=== PATIENT | female | born 1945 | race Caucasian/White ===

== ENCOUNTER 2017-10-29 06:20 | Inpatient (IN) | payer MEDICARE ==
[2017-10-29] VITALS (12 sets, daily range): BP systolic 114–166; BP diastolic 54–100; PULSE 80–125; RESP 17–20; TEMP 98.5–102.8; O2SAT 94–99
[~2017-10-29] VITALS: Ht 157.5 cm; Wt 78.6 kg
[2017-10-29] MEDS ORDERED: ASPI-516 CHEW (06:33)
[2017-10-29] MEDS ORDERED: METO1TAB9 PO (06:33)
[2017-10-29] MEDS ORDERED: ATOR40TA16 PO (06:33)
[2017-10-29] MEDS ORDERED: METF1000 PO (06:33)
[2017-10-29] MEDS ORDERED: SODIUM CHLOR 0.9% 1000 ML INJ 1,000 ML IV ONE (07:26)
[2017-10-29] MEDS ORDERED: cefTRIAXone INJ 1,000 MG in SODIUM CHLORIDE 0.9% INJ 100 ML IV ONE (07:30)
[2017-10-29] MEDS ORDERED: ACETAMINOPHEN 325 MG TAB PO ONE (07:30)
[2017-10-29 07:50] LABS: AUTOMATED NEUTROPHIL # 18.2 TH/MM3 (1.8-7.7); BASOPHIL # 0.1 TH/MM3 (0-0.2); BASOPHIL % 0.3 % (0.0-2.0); EOSINOPHIL % 0.2 % (0.0-4.0); HEMATOCRIT 35.9 % (35.0-46.0); HEMOGLOBIN 11.7 GM/DL (11.6-15.3); LYMPHOCYTE # 0.8 TH/MM3 (1.0-4.8); MEAN CELL VOLUME 80.5 FL (80.0-100.0); MEAN CORPUSCULAR HEMOGLOBIN 26.3 PG (27.0-34.0); MEAN CORPUSCULAR HGB CONC 32.7 % (32.0-36.0); MEAN PLATELET VOLUME 8.3 FL (7.0-11.0); MONO % 3.2 % (0.0-8.0); MONOCYTE # 0.6 TH/MM3 (0-0.9); NEUT % 92.3 % (16.0-70.0); PLATELET COUNT 269 TH/MM3 (150-450); RED BLOOD COUNT 4.46 MIL/MM3 (4.00-5.30); RED CELL DISTRIBUTION WIDTH 14.1 % (11.6-17.2); WHITE BLOOD COUNT 19.7 TH/MM3 (4.0-11.0)
--- NOTE | 2017-10-29 07:59 | RADRPT ---
EXAM DATE/TIME: 10/29/2017 07:44 [facility] COMPARISON: No previous studies available for comparison. INDICATIONS : Weakness, fall. RADIATION DOSE: 59.44 CTDIvol (mGy) MEDICAL HISTORY : Hypertension. Hypercholesterolemia. Diabetes. SURGICAL HISTORY : Hysterectomy. ENCOUNTER: Initial ACUITY: 1 day PAIN SCALE: 3/10 LOCATION: Left frontal TECHNIQUE: Multiple contiguous axial images were obtained of the head. Using automated exposure control and adj ustment of the mA and/or kV according to patient size, radiation dose was kept as low as reasonably a chievable to obtain optimal diagnostic quality images. DICOM format image data is available electro nically for review and comparison. FINDINGS: CEREBRUM: The ventricles are normal for age. No evidence of midline shift, mass lesion, hemorrhage or acute in farction. No extra-axial fluid collections are seen. POSTERIOR FOSSA: The cerebellum and brainstem are intact. The 4th ventricle is midline. The cerebellopontine angle i s unremarkable. EXTRACRANIAL: The visualized portion of the orbits is intact. Subgaleal hematoma along the left frontal region as w ell as preseptal orbital soft tissue swelling on the left. SKULL: The calvaria is intact. No evidence of skull fracture. CONCLUSION: No acute intracranial abnormality. Subgaleal hematoma along the left frontal region a s well as preseptal orbital soft tissue swelling on the left. Jamel Leonard MD on October 29, 2017 at 7:55 Board Certified Radiologist. This report was verified electronically.
[2017-10-29] MEDS: SODIUM CHLOR 0.9% 1000 ML INJ 800 ML IV ONE ×2 (08:01→11:05)
[2017-10-29 08:13] LABS: ALBUMIN 2.9 GM/DL (3.4-5.0); ALKALINE PHOSPHATASE 97 U/L (45-117); ALT (GPT) 39 U/L (10-53); AST (GOT) 33 U/L (15-37); BICARBONATE 19.7 MEQ/L (21.0-32.0); BLOOD UREA NITROGEN 13 MG/DL (7-18); CALCIUM 8.4 MG/DL (8.5-10.1); CHLORIDE 88 MEQ/L (98-107); CREATININE 0.95 MG/DL (0.50-1.00); GLOMERULAR FILTRATION RATE 58 ML/MIN (>89); GLUCOSE,RANDOM 347 MG/DL (74-106); TOTAL BILIRUBIN ADULT 0.7 MG/DL (0.2-1.0); TOTAL PROTEIN 7.6 GM/DL (6.4-8.2)
[2017-10-29 08:19] LABS: SODIUM (NA) 120 MEQ/L (136-145)
--- NOTE | 2017-10-29 08:43 | PD ---
HPI Chief Complaint: Fever Time Seen by Provider: 07:15 Travel History International Travel<30 days: No Contact w/Intl Traveler<30days: No Traveled to known affect area: No History of Present Illness HPI 72-year-old female arrives with fall and left forehead pain. Patient woke up to urinate approximately 5 in the morning and subsequently fell striking the left forehead about the bathroom. Profuse bleeding was observed. The patient reports taking Bactrim now for about 10 days for urinary tract infection. In the ER she denies fever although a fever of 101.9 was observed upon arrival. She denies chest pain shortness of breath and cough. She denies nausea vomiting dizziness. Moderate cephalgia is reported without visual change numbness tingling or weakness. PFSH Past Medical History High Cholesterol: Yes Diabetes: Yes Patient Takes Glucophage: Yes Diminished Hearing: No Hypertension: Yes Tetanus Vaccination: Unknown Influenza Vaccination: No ?: Not Menopausal: Yes Past Surgical History Hysterectomy: Yes Social History Alcohol Use: No Tobacco Use: No Substance Use: No Allergies-Medications (Allergen,Severity, Reaction): Coded Allergies: No Known Allergies (Unverified , 10/29/17) Reported Meds & Prescriptions Reported Meds & Active Scripts Active Reported Aspirin 81 Mg Chew 81 Mg CHEW DAILY Metoprolol Succinate ER 24 HR (Metoprolol Succinate) 50 Mg Tab 50 Mg PO DAILY Atorvastatin (Atorvastatin Calcium) 40 Mg Tab 40 Mg PO HS Metformin (Metformin HCl) 1,000 Mg Tab 1,000 Mg PO BIDPC Review of Systems Except as stated in HPI: all other systems reviewed are Neg General / Constitutional: No: Fever Genitourinary: Positive: Urgency, Frequency, Dysuria Physical Exam Narrative GENERAL: 72-year-old female pleasant well-nourished and developed Vital Signs Date Time Temp Pulse Resp B/P (MAP) Pulse Ox O2 Delivery O2 Flow Rate FiO2 10/29/17 06:37 101.9 108 17 123/60 (81) 95 Room Air 10/29/17 06:33 Room Air 10/29/17 06:29 101.9 108 17 123/60 (81) 95 SKIN: Warm and dry. HEAD: Atraumatic. Normocephalic. There is a cephalohematoma overlying the left eye. EYES: Pupils equal and round. No scleral icterus. No injection or drainage. There is no traumatic hyphema. Range of motion of the eyes is normal. ENT: No nasal bleeding or discharge. Mucous membranes pink and moist. NECK: Trachea midline. No JVD. CARDIOVASCULAR: Tachycardia regular without murmur. RESPIRATORY: No accessory muscle use. Clear to auscultation. Breath sounds equal bilaterally. GASTROINTESTINAL: Abdomen soft, non-tender, nondistended. Hepatic and splenic margins not palpable. MUSCULOSKELETAL: Extremities without clubbing, cyanosis, or edema. No obvious deformities. NEUROLOGICAL: Awake and alert. No obvious cranial nerve deficits. Motor grossly within normal limits. Five out of 5 muscle strength in the arms and legs. Normal speech. PSYCHIATRIC: Appropriate mood and affect; insight and judgment normal. Data Data Last Documented VS Vital Signs Date Time Temp Pulse Resp B/P (MAP) Pulse Ox O2 Delivery O2 Flow Rate FiO2 10/29/17 08:50 99.2 95 18 114/54 (74) 95 Room Air Orders Orders Sepsis Workup Initiated (10/29/17 ) Complete Blood Count With Diff (10/29/17 07:26) Comprehensive Metabolic Panel (10/29/17 07:26) Lactic Acid Sepsis Protocol (10/29/17 07:26) Urinalysis - C+S If Indicated (10/29/17 07:26) Blood Culture (10/29/17 07:26) Ecg Monitoring (10/29/17 07:26) Iv Access Insert/Monitor (10/29/17 07:26) Cath For Specimen (10/29/17 07:26) Oximetry (10/29/17 07:26) Oxygen Administration (10/29/17 07:26) Acetaminophen (Tylenol) (10/29/17 07:30) Sodium Chlor 0.9% 1000 Ml Inj (Ns 1000 M (10/29/17 07:26) Sodium Chlor 0.9% 1000 Ml Inj (Ns 1000 M (10/29/17 07:26) Ceftriaxone Inj (Rocephin Inj) (10/29/17 07:30) Ct Brain W/O Iv Contrast(Rout) (10/29/17 07:28) Chest, Pa & Lat (10/29/17 ) Admit Order (Ed Use Only) (10/29/17 ) Wood Chopper / Telemetry RANDALL.Q8H (10/29/17 08:50) Vital Signs (Adult) Q4H (10/29/17 08:50) Diet Heart Healthy (10/29/17 Breakfast) Activity Bed Rest (10/29/17 08:50) Labs Laboratory Tests Test 10/29/17 07:00 10/29/17 08:50 White Blood Count 19.7 TH/MM3 Red Blood Count 4.46 MIL/MM3 Hemoglobin 11.7 GM/DL Hematocrit 35.9 % Mean Corpuscular Volume 80.5 FL Mean Corpuscular Hemoglobin 26.3 PG Mean Corpuscular Hemoglobin Concent 32.7 % Red Cell Distribution Width 14.1 % Platelet Count 269 TH/MM3 Mean Platelet Volume 8.3 FL Neutrophils (%) (Auto) 92.3 % Lymphocytes (%) (Auto) 4.0 % Monocytes (%) (Auto) 3.2 % Eosinophils (%) (Auto) 0.2 % Basophils (%) (Auto) 0.3 % Neutrophils # (Auto) 18.2 TH/MM3 Lymphocytes # (Auto) 0.8 TH/MM3 Monocytes # (Auto) 0.6 TH/MM3 Eosinophils # (Auto) 0.0 TH/MM3 Basophils # (Auto) 0.1 TH/MM3 CBC Comment DIFF FINAL Differential Comment Blood Urea Nitrogen 13 MG/DL Creatinine 0.95 MG/DL Random Glucose 347 MG/DL Total Protein 7.6 GM/DL Albumin 2.9 GM/DL Calcium Level 8.4 MG/DL Alkaline Phosphatase 97 U/L Aspartate Amino Transf (AST/SGOT) 33 U/L Alanine Aminotransferase (ALT/SGPT) 39 U/L Total Bilirubin 0.7 MG/DL Sodium Level 120 MEQ/L Potassium Level 4.5 MEQ/L Chloride Level 88 MEQ/L Carbon Dioxide Level 19.7 MEQ/L Anion Gap 12 MEQ/L Estimat Glomerular Filtration Rate 58 ML/MIN Lactic Acid Level 1.4 mmol/L [facility] Medical Decision Making Medical Screen Exam Complete: Yes Emergency Medical Condition: Yes Medical Record Reviewed: Yes Differential Diagnosis Metabolic disarray, anemia, intracranial hemorrhage, cephalhematoma, skull fracture, UTI, sepsis Narrative Course CBC & BMP Diagram 10/29/17 07:00 Total Protein 7.6, Albumin 2.9 L, Calcium Level 8.4 L, Alkaline Phosphatase 97, Aspartate Amino Transf (AST/SGOT) 33, Alanine Aminotransferase (ALT/SGPT) 39, Total Bilirubin 0.7 Lactic acid 1.0 LFTs are normal Head CT shows no acute intracranial disease or injury Patient has hyponatremia at 120 associated with fall as well as a fever and tachycardia. IV fluids started, 2 L normal saline, and Rocephin started. Patient will be admitted for electrolyte correction as well as IV antibiotics. d /w Dr Oconnor for [facility]. Diagnosis Primary Impression: Fall Qualified Codes: W19.XXXA - Unspecified fall, initial encounter Additional Impressions: Hyponatremia SIRS (systemic inflammatory response syndrome) Contusion Qualified Codes: S00.03XA - Contusion of scalp, initial encounter Admitting Information Admitting Physician Requests: Admit Maciej Ruiz MD Oct 29, 2017 08:43
[2017-10-29 09:01] LABS: BLOOD, URINE MOD (NEG); GLUCOSE,URINE 1000 OR GREATER mg/dL (NEG); KETONE, URINE 80 OR GREATER mg/dL (NEG); NITRITE,URINE NEG (NEG); URINE COLOR YELLOW (YELLW/STRAW); URINE LEUKOCYTE ESTERASE NEG (NEG)
[2017-10-29 09:05] LABS: BILIRUBIN, URINE NEG (NEG)
[2017-10-29 09:08] LABS: AMORPHOUS SEDIMENT, URINE FEW; RBC, URINE 0-3 /hpf (0-3); SQUAMOUS EPITHELIAL CELL URINE 0-5 /hpf (0-5)
--- NOTE | 2017-10-29 09:32 | RADRPT ---
EXAM DATE/TIME: 10/29/2017 09:07 [facility] COMPARISON: No previous studies available for comparison. INDICATIONS : Fever, fall, weak MEDICAL HISTORY : None. SURGICAL HISTORY : None. ENCOUNTER: Initial ACUITY: 1 day PAIN SCORE: 0/10 LOCATION: Bilateral chest FINDINGS: Right basilar atelectasis is noted. The heart is mildly prominent. There is a poor inspiratory result . CONCLUSION: Right basilar atelectasis. Mild cardiomegaly. Poor inspiratory result. Jamel Leonard MD on October 29, 2017 at 9:28 Board Certified Radiologist. This report was verified electronically.
[2017-10-29] MEDS ORDERED: SODIUM CHLORIDE 0.9% FLUSH 10 ML FLUSH IV FLUSH PRN (10:00)
[2017-10-29] MEDS ORDERED: NALOXONE HCL 0.4 MG/ML AMP IV PUSH PRN (10:00)
[2017-10-29] MEDS ORDERED: DEXTROSE 50% IN WATER 50 ML VIAL(D50) IV PUSH PRN (10:00)
[2017-10-29] MEDS ORDERED: GLUCAGON 1 MG/ML VIAL OTHER PRN (10:00)
[2017-10-29] MEDS ORDERED: ONDANSETRON HCL 4 MG/2 ML VIAL IVP PRN (10:00)
--- NOTE | 2017-10-29 10:04 | HHI.HP ---
HPI Service [facility] Primary Care Physician Carissa Hinson MD Admission Diagnosis HypoNa; SIRS; Fall; Syncope; Forehead Contusion w Abrasion Diagnoses: Chief Complaint: Status post fall at home Travel History International Travel<30 Days: No Contact w/Intl Traveler <30 Da: No Traveled to Known Affected Are: No History of Present Illness This patient is a 9-year-old female with a history of hypertension and recent urinary tract infection. She was recently given Bactrim for "10 days ". She started having lightheadedness and dizziness and fell at home. She struck the left side of her head and had a laceration with quite a bit of blood. She has since been clean and evaluated and no small laceration of stitches however the patient is also found to have hyponatremia. Her sodium was 120. Patient is febrile and tachycardia and has evidence of urinary tract infection. Patient admits to dysuria and urinary frequency. She has been admitted to the hospital for hyponatremia. Review of Systems Constitutional: COMPLAINS OF: Dizziness, DENIES: Diaphoretic episodes, Fatigue , Fever, Weight gain, Weight loss, Chills, Change in appetite, Night Sweats Endocrine: DENIES: Abnorml menstrual pattern, Heat/cold intolerance, Polydipsia , Polyuria, Polyphagia Eyes: DENIES: Blurred vision, Diplopia, Eye inflammation, Eye pain, Vision loss , Photosensitivity, Double Vision Ears, nose, mouth, throat: DENIES: Tinnitus, Hearing loss, Vertigo, Nasal discharge, Oral lesions, Throat pain, Hoarseness, Ear Pain, Running Nose, Epistaxis, Sinus Pain, Toothache, Odynophagia Respiratory: DENIES: Apneas, Cough, Snoring, Wheezing, Hemoptysis, Sputum production, Shortness of breath Cardiovascular: DENIES: Chest pain, Palpitations, Syncope, Dyspnea on Exertion , PND, Lower Extremity Edema, Orthopnea, Claudication Gastrointestinal: DENIES: Abdominal pain, Black stools, Bloody stools, Constipation, Diarrhea, Nausea, Vomiting, Difficulty Swallowing, Anorexia Genitourinary: COMPLAINS OF: Urinary incontinence, Urgency, DENIES: Abnormal vaginal bleeding, Dysmenorrhea, Dyspareunia, Sexual dysfunction, Urinary frequency, Hematuria, Dysuria, Nocturia, Vaginal discharge Musculoskeletal: DENIES: Joint pain, Muscle aches, Stiffness, Joint Swelling, Back pain, Neck pain Integumentary: DENIES: Abnormal pigmentation, Pruritus, Rash, Nail changes, Breast masses, Breast skin changes, Nipple discharge Hematologic/lymphatic: DENIES: Bruising, Lymphadenopathy Immunologic/allergic: DENIES: Eczema, Urticaria Neurologic: COMPLAINS OF: Poor Balance Psychiatric: DENIES: Anxiety, Confusion, Mood changes, Depression, Hallucinations, Agitation, Suicidal Ideation, Homicidal Ideation, Delusions Except as stated in HPI: all other systems reviewed are Neg Past Family Social History Past Medical History Hypertension Hyperlipidemia Diabetes mellitus type 2 Past Surgical History Hysterectomy Reported Medications Reviewed in the EMR, recent Bactrim Allergies: Coded Allergies: No Known Allergies (Unverified , 10/29/17) Active Ordered Medications Reviewed in the EMR Family History Father from a cardiac attack Mother from a heart attack and had diabetes mellitus type 2 Social History No tobacco or alcohol dependency issues Physical Exam Vital Signs Vital Signs Date Time Temp Pulse Resp B/P (MAP) Pulse Ox O2 Delivery O2 Flow Rate FiO2 10/29/17 08:50 99.2 95 18 114/54 (74) 95 Room Air 10/29/17 06:37 101.9 108 17 123/60 (81) 95 Room Air 10/29/17 06:33 Room Air 10/29/17 06:29 101.9 108 17 123/60 (81) 95 Physical Exam GENERAL: This is a well-nourished, well-developed patient, ill-appearing left SKIN: No rashes, ecchymoses or lesions. Cool and dry. HEAD: Eyebrows edema and small laceration with ecchymosis, otherwise normocephalic. No temporal or scalp tenderness. EYES: Pupils equal round and reactive. Extraocular motions intact. No scleral icterus. No injection or drainage. ENT: Nose without bleeding, purulent drainage or septal hematoma. Throat without erythema, tonsillar hypertrophy or exudate. Uvula midline. Airway patent. NECK: Trachea midline. No JVD or lymphadenopathy. Supple, nontender, no meningeal signs. CARDIOVASCULAR: Regular rate and rhythm without murmurs, gallops, or rubs. RESPIRATORY: Clear to auscultation. Breath sounds equal bilaterally. No wheezes , rales, or rhonchi. GASTROINTESTINAL: Abdomen soft, non-tender, nondistended. No hepato-splenomegaly , or palpable masses. No guarding. MUSCULOSKELETAL: Extremities without clubbing, cyanosis, or edema. No joint tenderness, effusion, or edema noted. No calf tenderness. Negative Homans sign bilaterally. NEUROLOGICAL: Awake and alert. Cranial nerves II through XII intact. Motor and sensory grossly within normal limits. Five out of 5 muscle strength in all muscle groups. Normal speech. Laboratory Laboratory Tests Test 10/29/17 07:00 10/29/17 08:50 White Blood Count 19.7 Red Blood Count 4.46 Hemoglobin 11.7 Hematocrit 35.9 Mean Corpuscular Volume 80.5 Mean Corpuscular Hemoglobin 26.3 Mean Corpuscular Hemoglobin Concent 32.7 Red Cell Distribution Width 14.1 Platelet Count 269 Mean Platelet Volume 8.3 Neutrophils (%) (Auto) 92.3 Lymphocytes (%) (Auto) 4.0 Monocytes (%) (Auto) 3.2 Eosinophils (%) (Auto) 0.2 Basophils (%) (Auto) 0.3 Neutrophils # (Auto) 18.2 Lymphocytes # (Auto) 0.8 Monocytes # (Auto) 0.6 Eosinophils # (Auto) 0.0 Basophils # (Auto) 0.1 CBC Comment DIFF FINAL Differential Comment Blood Urea Nitrogen 13 Creatinine 0.95 Random Glucose 347 Total Protein 7.6 Albumin 2.9 Calcium Level 8.4 Alkaline Phosphatase 97 Aspartate Amino Transf (AST/SGOT) 33 Alanine Aminotransferase (ALT/SGPT) 39 Total Bilirubin 0.7 Sodium Level 120 Potassium Level 4.5 Chloride Level 88 Carbon Dioxide Level 19.7 Anion Gap 12 Estimat Glomerular Filtration Rate 58 Lactic Acid Level 1.4 Urine Collection Type CATH Urine Color YELLOW Urine Turbidity CLEAR Urine pH 6.0 Urine Specific Springer GREATER/EQUAL 1.030 Urine Protein 100 Urine Glucose (UA) 1000 OR GREATER Urine Ketones 80 OR GREATER Urine Occult Blood MOD Urine Nitrite NEG Urine Bilirubin NEG Urine Urobilinogen 0.2 Urine Leukocyte Esterase NEG Urine RBC 0-3 Urine WBC 6-8 Urine Squamous Epithelial Cells 0-5 Urine Amorphous Sediment FEW Urine Fine Granular Casts 0-2 Microscopic Urinalysis Comment CULTURE INDICATED Date/Time Source Procedure Growth Status 10/29/17 07:05 Blood Peripheral Aerobic Blood Culture Pending Received 3/25/18 07:05 Blood Peripheral Anaerobic Blood Culture Pending Received 10/29/17 08:50 Urine Catheterized Urine Urine Culture Pending Received Result Diagram: 10/29/17 0700 10/29/[address] of the head no intracranial pathology acutely, cutaneous edema consistent with trauma visualized on clinical exam Chest x-ray on my review shows no acute cardiopulmonary disease Septic Shock Reassessment Septic shock perfusion: reassessment completed Caprini VTE Risk Assessment Caprini VTE Risk Assessment: Mod/High Risk (score >= 2) Caprini Risk Assessment Model Point Value = 1 Point Value = 2 Point Value = 3 Point Value = 5 Age 41-60 Minor surgery BMI > 25 kg/m2 Swollen legs Varicose veins or History of unexplained or recurrent spontaneous Oral contraceptives or hormone replacement Sepsis (< 1 month) Serious lung disease, including pneumonia (< 1 month) Abnormal pulmonary function Acute myocardial infarction Congestive heart failure (< 1 month) History of inflammatory bowel disease Medical patient at bed rest Age 61-74 Arthroscopic surgery Major open surgery (> 45 min) Laparoscopic surgery (> 45 min) Malignancy Confined to bed (> 72 hours) Immobilizing plaster cast Central venous access Age >= 75 History of VTE Family history of VTE Factor V Leiden Prothrombin [id number] Lupus anticoagulant Anticardiolipin antibodies Elevated serum homocysteine Heparin-induced thrombocytopenia Other congenital or acquired thrombophilia Stroke (< 1 month) Elective arthroplasty Hip, pelvis, or leg fracture Acute spinal cord injury (< 1 month) Prophylaxis Regimen Total Risk Factor Score Risk Level Prophylaxis Regimen 0-1 Low Early ambulation 2 Moderate Order ONE of the following: *Sequential Compression Device (SCD) *Heparin 5000 units SQ BID 3-4 Higher Order ONE of the following medications: *Heparin 5000 units SQ TID *Enoxaparin/Lovenox 40 mg SQ daily (WT < 150 kg, CrCl > 30 mL/min) *Enoxaparin/Lovenox 30 mg SQ daily (WT < 150 kg, CrCl > 10-29 mL/min) *Enoxaparin/Lovenox 30 mg SQ BID (WT < 150 kg, CrCl > 30 mL/min) AND/OR *Sequential Compression Device (SCD) 5 or more Highest Order ONE of the following medications: *Heparin 5000 units SQ TID (Preferred with Epidurals) *Enoxaparin/Lovenox 40 mg SQ daily (WT < 150 kg, CrCl > 30 mL/min) *Enoxaparin/Lovenox 30 mg SQ daily (WT < 150 kg, CrCl > 10-29 mL/min) *Enoxaparin/Lovenox 30 mg SQ BID (WT < 150 kg, CrCl > 30 mL/min) AND *Sequential Compression Device (SCD) Assessment and Plan Problem List: (1) Hyponatremia ICD Code: E87.1 - Hypo-osmolality and hyponatremia Status: Acute Plan: May be trimethoprim associated hyponatremia Patient also appears dehydrated Continue with inpatient evaluation, ivf (2) Sepsis ICD Code: A41.9 - Sepsis, unspecified organism Status: Acute Plan: UTI with elevated heart rate, elevated temperature Failed outpatient antibiotics Continue IV Rocephin (3) DM2 (diabetes mellitus, type 2) ICD Code: E11.9 - Type 2 diabetes mellitus without complications Plan: transfer, recent back metformin held, continue sliding scale insulin and diabetic diet Physician Certification 2 Midnight Certification Type: Admission for Inpatient Services Order for Inpatient Services The services are ordered in accordance with Medicare regulations or non- Medicare payer requirements, as applicable. In the case of services not specified as inpatient-only, they are appropriately provided as inpatient services in accordance with the 2-midnight benchmark. Estimated LOS (days): 3 3 days is the estimated time the patient will need to remain in the hospital, assuming treatment plan goals are met and no additional complications. Post-Hospital Plan: Home Problem Qualifiers (1) Sepsis: Qualified Codes: A41.9 - Sepsis, unspecified organism Ashanti Oconnor MD Oct 29, 2017 10:04
[2017-10-29] MEDS: SODIUM CHLOR 0.9% 1000 ML INJ 1,000 ML IV SCH ×2 (11:09→23:20)
[2017-10-29] MEDS: INSULIN ASPART SUPPLEMENTAL SCALE SQ SCH ×4 (13:42→21:59)
[2017-10-29 14:18] LABS: BICARBONATE 19.5 MEQ/L (21.0-32.0); CALCIUM 7.5 MG/DL (8.5-10.1); CREATININE 0.77 MG/DL (0.50-1.00)
[2017-10-29] MEDS: ACETAMINOPHEN 325 MG TAB PO PRN (18:03)
[2017-10-29] MEDS: guaiFENesin SOLUTION 200 MG/10 ML CUP PO PRN ×2 (18:37→23:26)
[2017-10-29] MEDS: METOPROLOL SUCCINATE 50 MG EXTENDED RELEASE TAB PO SCH (18:37)
[2017-10-29] MEDS: SODIUM CHLORIDE 0.9% FLUSH 10 ML FLUSH IV FLUSH SCH (21:55)
[2017-10-29] MEDS: DOCUSATE SODIUM 50 MG/SENNA 8.6 MG TAB PO SCH (21:56)
[2017-10-30] VITALS (8 sets, daily range): BP systolic 118–168; BP diastolic 63–86; PULSE 99–120; RESP 17–20; TEMP 96.8–102.4; O2SAT 92–98
[2017-10-30] MEDS: ACETAMINOPHEN 325 MG TAB PO PRN ×2 (00:37→16:09)
[2017-10-30 07:53] LABS: AUTOMATED NEUTROPHIL # 16.7 TH/MM3 (1.8-7.7); BASOPHIL # 0.1 TH/MM3 (0-0.2); BASOPHIL % 0.7 % (0.0-2.0); EOSINOPHIL # 0.2 TH/MM3 (0-0.4); EOSINOPHIL % 0.9 % (0.0-4.0); HEMATOCRIT 31.1 % (35.0-46.0); HEMOGLOBIN 10.2 GM/DL (11.6-15.3); LYMPH % 5.8 % (9.0-44.0); LYMPHOCYTE # 1.1 TH/MM3 (1.0-4.8); MEAN CELL VOLUME 80.2 FL (80.0-100.0); MEAN CORPUSCULAR HEMOGLOBIN 26.3 PG (27.0-34.0); MEAN CORPUSCULAR HGB CONC 32.7 % (32.0-36.0); MEAN PLATELET VOLUME 8.3 FL (7.0-11.0); MONO % 5.5 % (0.0-8.0); MONOCYTE # 1.1 TH/MM3 (0-0.9); NEUT % 87.1 % (16.0-70.0); PLATELET COUNT 268 TH/MM3 (150-450); RED BLOOD COUNT 3.88 MIL/MM3 (4.00-5.30); RED CELL DISTRIBUTION WIDTH 14.1 % (11.6-17.2); WHITE BLOOD COUNT 19.2 TH/MM3 (4.0-11.0)
[2017-10-30 08:02] LABS: BICARBONATE 20.5 MEQ/L (21.0-32.0); CALCIUM 7.8 MG/DL (8.5-10.1)
[2017-10-30 08:08] LABS: CREATININE 0.52 MG/DL (0.50-1.00)
[2017-10-30] MEDS: guaiFENesin SOLUTION 200 MG/10 ML CUP PO PRN ×3 (08:27→23:00)
[2017-10-30] MEDS: INSULIN ASPART SUPPLEMENTAL SCALE SQ SCH ×4 (08:28→21:21)
[2017-10-30] MEDS: METOPROLOL SUCCINATE 50 MG EXTENDED RELEASE TAB PO SCH (08:28)
[2017-10-30] MEDS: SODIUM CHLORIDE 0.9% FLUSH 10 ML FLUSH IV FLUSH SCH ×2 (08:29→21:01)
[2017-10-30] MEDS: cefTRIAXone INJ 1,000 MG in SODIUM CHLORIDE 0.9% INJ 100 ML IV SCH (08:29)
[2017-10-30] MEDS: SODIUM CHLOR 0.9% 1000 ML INJ 1,000 ML IV SCH ×2 (08:29→18:20)
[2017-10-30] MEDS: DOCUSATE SODIUM 50 MG/SENNA 8.6 MG TAB PO SCH ×2 (08:30→21:00)
--- NOTE | 2017-10-30 15:53 | HHI.PR ---
Subjective Remarks Patient seen and examined today for follow-up on hyponatremia, sepsis, fall at home. Patient's states that she is having chills at this time. She did have either overnight with MAXIMUM TEMPERATURE 102.4. We'll need further evaluation. She states that her symptoms started with cough and upper respiratory symptoms. We'll need to obtain flu study. Otherwise patient states that she is weak. Objective Vitals Vital Signs Date Time Temp Pulse Resp B/P (MAP) Pulse Ox O2 Delivery O2 Flow Rate FiO2 10/30/17 12:00 99.5 119 18 168/86 (113) 92 10/30/17 08:00 99.0 108 17 134/63 (86) 94 10/30/17 04:00 97.8 99 17 118/80 (93) 96 10/30/17 00:35 102.4 10/30/17 00:00 101.8 101 18 122/72 (89) 98 10/29/17 20:04 102 10/29/17 20:00 100.1 113 18 128/93 (105) 99 10/29/17 18:44 125 10/29/17 16:52 18 10/29/17 16:02 98.5 112 18 140/67 (91) 98 10/29/17 16:00 114 I/O 10/29/17 10/29/17 10/29/17 10/30/17 10/30/17 10/30/17 07:00 15:00 23:00 07:00 15:00 23:00 Intake Total 1900 ml 674 ml 1189 ml 471 ml Balance 1900 ml 674 ml 1189 ml 471 ml Intake Oral 240 ml IV Total 1900 ml 434 ml 1189 ml 471 ml # Voids 1 2 Result Diagram: 10/30/17 0715 10/30/17 0715 Imaging Last Impressions Head CT 10/29/17 0728 Signed Impressions: Service Date/Time: Sunday, October 29, 2017 07:44 - CONCLUSION: No acute intracranial abnormality. Subgaleal hematoma along the left frontal region as well as preseptal orbital soft tissue swelling on the left. Jamel Leonard MD Chest X-Ray 10/29/17 0000 Signed Impressions: Service Date/Time: Sunday, October 29, 2017 09:07 - CONCLUSION: Right basilar atelectasis. Mild cardiomegaly. Poor inspiratory result. Jamel Leonard MD Objective Remarks GENERAL: Well-developed, well-nourished, in no acute distress. alert and orientated HEENT: Head is normocephalic without any lesions or masses noted. Facial features patient does have ecchymosis and mild edema noted over the left brow and lateral eye. Eyes: Extraocular muscles are intact. Conjunctivae were clear. NECK: Supple without any masses. Trachea midline no deviation. No JVD, CARDIAC: Regular rhythm, regular rate. S1/S2 are heard. No murmurs gallops or rubs. LUNGS: Clear to auscultation bilaterally. No wheeze, rhonchi or rales. No use of accessory muscles on inspiration or expiration. ABDOMEN: Soft, nontender. Nondistended. Bowel sounds heard in all 4 quadrants. No organomegaly or masses. Negative rebound, negative guarding EXTREMITIES: No edema, pulses are equal bilaterally. No cyanosis or clubbing NEUROLOGY: Mood and affect appear appropriate. Cranial nerves II through XII grossly intact. Moving all extremities, speech is clear Urinary Catheter: No Vascular Central Line Catheter: No A/P Assessment and Plan Sepsis, persistent Patient still with febrile illness, tachycardia, leukocytosis, infectious source as far as urinary tract infection Chest x-ray was unremarkable for any acute abnormality Blood cultures are negative for 1 day Urine culture showing staph species Obtain influenza testing Patient continued on Rocephin Leukocytosis, persistent No significant change overnight Continue monitor CBC Hyponatremia, resolved Could be secondary to recent Bactrim use Continue monitor sodium level Diabetes Accu-Cheks with sliding scale insulin Diabetic diet DVT prevention Sequential compression devices Discharge Planning Discharge planning 24-48 hours depending on patient response to treatment, if she remains afebrile, infectious source identified with appropriate management Vinicio Gimenez Oct 30, 2017 15:53
[2017-10-30] MEDS: OSELTAMIVIR PHOSPHATE 75 MG CAP PO SCH (21:21)
[2017-10-31] VITALS (16 sets, daily range): BP systolic 91–160; BP diastolic 48–80; PULSE 84–163; RESP 17–39; TEMP 97–99.1; O2SAT 94–97
[2017-10-31] MEDS: guaiFENesin SOLUTION 200 MG/10 ML CUP PO PRN ×4 (02:26→19:32)
[2017-10-31] MEDS: SODIUM CHLOR 0.9% 1000 ML INJ 1,000 ML IV SCH ×3 (03:20→21:53)
[2017-10-31 06:37] LABS: AUTOMATED NEUTROPHIL # 17.5 TH/MM3 (1.8-7.7); BASOPHIL # 0.2 TH/MM3 (0-0.2); BASOPHIL % 1.2 % (0.0-2.0); EOSINOPHIL # 0.3 TH/MM3 (0-0.4); EOSINOPHIL % 1.5 % (0.0-4.0); HEMATOCRIT 30.4 % (35.0-46.0); HEMOGLOBIN 10.1 GM/DL (11.6-15.3); LYMPH % 6.9 % (9.0-44.0); LYMPHOCYTE # 1.4 TH/MM3 (1.0-4.8); MEAN CORPUSCULAR HEMOGLOBIN 26.5 PG (27.0-34.0); MEAN CORPUSCULAR HGB CONC 33.1 % (32.0-36.0); MEAN PLATELET VOLUME 8.6 FL (7.0-11.0); MONO % 5.9 % (0.0-8.0); MONOCYTE # 1.2 TH/MM3 (0-0.9); NEUT % 84.5 % (16.0-70.0); PLATELET COUNT 311 TH/MM3 (150-450); RED BLOOD COUNT 3.81 MIL/MM3 (4.00-5.30); RED CELL DISTRIBUTION WIDTH 14.5 % (11.6-17.2); WHITE BLOOD COUNT 20.6 TH/MM3 (4.0-11.0)
[2017-10-31 06:47] LABS: CHLORIDE 103 MEQ/L (98-107); SODIUM (NA) 132 MEQ/L (136-145)
[2017-10-31 07:28] LABS: ALBUMIN 2.2 GM/DL (3.4-5.0); ALKALINE PHOSPHATASE 110 U/L (45-117); ALT (GPT) 47 U/L (10-53); AST (GOT) 36 U/L (15-37); BICARBONATE 17.9 MEQ/L (21.0-32.0); BLOOD UREA NITROGEN 10 MG/DL (7-18); CALCIUM 7.5 MG/DL (8.5-10.1); CREATININE 0.54 MG/DL (0.50-1.00); GLOMERULAR FILTRATION RATE 112 ML/MIN (>89); GLUCOSE,RANDOM 231 MG/DL (74-106); MAGNESIUM 1.5 MG/DL (1.5-2.5); TOTAL BILIRUBIN ADULT 0.5 MG/DL (0.2-1.0); TOTAL PROTEIN 6.3 GM/DL (6.4-8.2)
[2017-10-31] MEDS: METOPROLOL SUCCINATE 50 MG EXTENDED RELEASE TAB PO SCH (07:57)
[2017-10-31] MEDS: OSELTAMIVIR PHOSPHATE 75 MG CAP PO SCH ×2 (07:57→21:02)
[2017-10-31] MEDS: DOCUSATE SODIUM 50 MG/SENNA 8.6 MG TAB PO SCH ×2 (07:57→21:02)
[2017-10-31] MEDS: cefTRIAXone INJ 1,000 MG in SODIUM CHLORIDE 0.9% INJ 100 ML IV SCH (07:57)
[2017-10-31] MEDS: INSULIN ASPART SUPPLEMENTAL SCALE SQ SCH ×4 (07:58→21:00)
[2017-10-31] MEDS: SODIUM CHLORIDE 0.9% FLUSH 10 ML FLUSH IV FLUSH SCH ×2 (07:59→21:06)
--- NOTE | 2017-10-31 10:11 | HHI.FF ---
Face to Face Verification Diagnosis: (1) Sepsis (2) DM2 (diabetes mellitus, type 2) (3) Fall (4) Hyponatremia (5) SIRS (systemic inflammatory response syndrome) Physical Therapy Order: Evaluate and Treat, Improve ambulation, Strength and gait training Home Health Nursing Order: Medical education Signs/symptoms of disease process Nursing assessment with vital signs I have seen patient Mariana Paz on 10/31/17. My clinical findings support the need for the requested home health care services because: Deconditioned w/ increased weakness Limited ability to care for self I certify that my clinical findings support that this patient is homebound because: Unsteady gait/balance Vinicio Gimenez Oct 31, 2017 10:11
[2017-10-31] MEDS ORDERED: DILTIAZEM HCL 25 MG/5 ML VIAL IV ONE (12:00)
[2017-10-31] MEDS ORDERED: COQ-100C5 PO (12:44)
[2017-10-31] MEDS ORDERED: ATOR10TA15 PO (12:44)
[2017-10-31] MEDS ORDERED: AMAR2TAB PO (12:44)
[2017-10-31] MEDS ORDERED: CARD180C5 PO (12:44)
[2017-10-31] MEDS: DILTIAZEM INJ 125 MG in SODIUM CHLORIDE 0.9% INJ 100 ML IV PRN ×2 (12:45→21:49)
--- NOTE | 2017-10-31 13:22 | HHI.PR ---
Subjective Remarks Patient seen and examined today for follow-up on sepsis, influenza. Patient was on telemetry and noticed to have heart rate 150-170. EKG is performed which did show atrial fibrillation. Patient was transferred to ICU for continued care. Patient does have history of atrial fibrillation and she is treated with beta andre and Cardizem in outpatient setting. However her home medication list wasn't updated do indicate that she was on Cardizem 180 mg in outpatient setting. Patient is resting carefully. Denying any chest pain, shortness of breath, dyspnea. Objective Vitals Vital Signs Date Time Temp Pulse Resp B/P (MAP) Pulse Ox O2 Delivery O2 Flow Rate FiO2 10/31/17 13:13 152 10/31/17 12:45 155 95/71 10/31/17 08:00 97.6 105 20 140/80 (100) 96 10/31/17 00:00 97.0 120 20 160/75 (103) 95 10/30/17 20:00 96.8 103 20 133/81 (98) 94 10/30/17 20:00 102 10/30/17 18:09 99.1 10/30/17 16:00 101.3 120 20 155/83 (107) 93 I/O 10/30/17 10/30/17 10/30/17 10/31/17 10/31/17 10/31/17 07:00 15:00 23:00 07:00 15:00 23:00 Intake Total 1189 ml 471 ml 1100 ml 1000 ml 480 ml Balance 1189 ml 471 ml 1100 ml 1000 ml 480 ml Intake Oral 600 ml 480 ml IV Total 1189 ml 471 ml 500 ml 1000 ml # Voids 2 4 2 # Bowel Movements 2 0 Result Diagram: 10/31/17 0440 10/31/17 0440 Objective Remarks GENERAL: Well-developed, well-nourished, in no acute distress. alert and orientated HEENT: Head is normocephalic without any lesions or masses noted. Facial features patient does have ecchymosis and mild edema noted over the left brow and lateral eye. Eyes: Extraocular muscles are intact. Conjunctivae were clear. NECK: Supple without any masses. Trachea midline no deviation. No JVD, CARDIAC: Irregular rhythm, irregular rate. S1/S2 are heard. No murmurs gallops or rubs. LUNGS: Clear to auscultation bilaterally. No wheeze, rhonchi or rales. No use of accessory muscles on inspiration or expiration. ABDOMEN: Soft, nontender. Nondistended. Bowel sounds heard in all 4 quadrants. No organomegaly or masses. Negative rebound, negative guarding EXTREMITIES: No edema, pulses are equal bilaterally. No cyanosis or clubbing NEUROLOGY: Mood and affect appear appropriate. Cranial nerves II through XII grossly intact. Moving all extremities, speech is clear Urinary Catheter: No Vascular Central Line Catheter: No A/P Assessment and Plan Sepsis, persistent Patient still with febrile illness, tachycardia, leukocytosis, infectious source as far as urinary tract infection Chest x-ray was unremarkable for any acute abnormality Blood cultures are negative for 2 days Urine culture showing staph species Influenza testing was positive Patient continued on Rocephin Atrial fibrillation with RVR Likely secondary to combination of acute infection and not continuing Cardizem home medication Transferred ICU Start Cardizem IV 20 mg 1 Cardizem IV for rate control Will resume patient's home Cardizem CD 180 mg daily Leukocytosis, persistent No significant change overnight Continue monitor CBC Influenza infection patient continued on Tamiflu Supportive treatment Hyponatremia, resolved Could be secondary to recent Bactrim use Continue monitor sodium level Diabetes Accu-Cheks with sliding scale insulin Diabetic diet DVT prevention Sequential compression devices Vinicio Gimenez Oct 31, 2017 13:22
[2017-10-31] MEDS: DILTIAZEM-CD 180 MG CAP ER PO SCH (14:58)
[2017-11-01] VITALS (8 sets, daily range): BP systolic 124–132; BP diastolic 65–79; PULSE 84–114; RESP 16–43; TEMP 97.4–98.4; O2SAT 95–97
[2017-11-01] MEDS ORDERED: RESP: ALBUTEROL 2.5 MG/IPRATROPIUM 0.5 MG NEB (PRN) NEB (00:15)
[2017-11-01] MEDS: guaiFENesin SOLUTION 200 MG/10 ML CUP PO PRN (06:38)
[2017-11-01] MEDS: SODIUM CHLOR 0.9% 1000 ML INJ 1,000 ML IV SCH (07:53)
[2017-11-01] MEDS: INSULIN ASPART SUPPLEMENTAL SCALE SQ SCH ×2 (08:00→12:00)
[2017-11-01] MEDS: METOPROLOL SUCCINATE 50 MG EXTENDED RELEASE TAB PO SCH (09:15)
[2017-11-01] MEDS: OSELTAMIVIR PHOSPHATE 75 MG CAP PO SCH (09:15)
[2017-11-01] MEDS: SODIUM CHLORIDE 0.9% FLUSH 10 ML FLUSH IV FLUSH SCH (09:15)
[2017-11-01] MEDS: DOCUSATE SODIUM 50 MG/SENNA 8.6 MG TAB PO SCH (09:15)
[2017-11-01] MEDS: DILTIAZEM-CD 180 MG CAP ER PO SCH (09:15)
[2017-11-01] MEDS: cefTRIAXone INJ 1,000 MG in SODIUM CHLORIDE 0.9% INJ 100 ML IV SCH (09:15)
[2017-11-01] MEDS ORDERED: MACR100C2 PO (12:52)
[2017-11-01] MEDS ORDERED: OSEL75 PO (12:52)
--- NOTE | 2017-11-01 12:53 | HHI.DCPOC ---
Discharge Care Plan Diagnosis: (1) Influenza (2) Sepsis (3) Hyponatremia Goals to Promote Your Health * To prevent worsening of your condition and complications * To maintain your health at the optimal level Directions to Meet Your Goals Take your medications as prescribed Follow your dietary instruction Follow activity as directed Keep your appointments as scheduled Take your immunizations and boosters as scheduled If your symptoms worsen call your PCP, if no PCP go to Urgent Care Center or Emergency Room Smoking is Dangerous to Your Health. Avoid second hand smoke Call the 24-hour hour crisis hotline for domestic abuse at Vinicio Gimenez Nov 01, 2017 12:53
--- NOTE | 2017-11-01 14:42 | HHI.DS ---
Discharge Summary Admission Date Oct 29, 2017 at 08:53 Discharge Date: Nov 01, 2017 Admitting Diagnosis HypoNa; SIRS; Fall; Syncope; Forehead Contusion w Abrasion (1) Hyponatremia ICD Code: E87.1 - Hypo-osmolality and hyponatremia Status: Acute (2) Sepsis ICD Code: A41.9 - Sepsis, unspecified organism Status: Acute (3) DM2 (diabetes mellitus, type 2) ICD Code: E11.9 - Type 2 diabetes mellitus without complications (4) Influenza ICD Code: J11.1 - Influenza due to unidentified influenza virus with other respiratory manifestations Procedures None Brief History - From Admission This patient is a 9-year-old female with a history of hypertension and recent urinary tract infection. She was recently given Bactrim for "10 days ". She started having lightheadedness and dizziness and fell at home. She struck the left side of her head and had a laceration with quite a bit of blood. She has since been clean and evaluated and no small laceration of stitches however the patient is also found to have hyponatremia. Her sodium was 120. Patient is febrile and tachycardia and has evidence of urinary tract infection. Patient admits to dysuria and urinary frequency. She has been admitted to the hospital for hyponatremia. CBC/BMP: 10/31/17 0440 10/31/17 0440 Significant Findings Laboratory Tests Test 10/30/17 07:15 10/31/17 04:40 White Blood Count 19.2 TH/MM3 (4.0-11.0) 20.6 TH/MM3 (4.0-11.0) Red Blood Count 3.88 MIL/MM3 (4.00-5.30) 3.81 MIL/MM3 (4.00-5.30) Hemoglobin 10.2 GM/DL (11.6-15.3) 10.1 GM/DL (11.6-15.3) Hematocrit 31.1 % (35.0-46.0) 30.4 % (35.0-46.0) Mean Corpuscular Hemoglobin 26.3 PG (27.0-34.0) 26.5 PG (27.0-34.0) Neutrophils (%) (Auto) 87.1 % (16.0-70.0) 84.5 % (16.0-70.0) Lymphocytes (%) (Auto) 5.8 % (9.0-44.0) 6.9 % (9.0-44.0) Neutrophils # (Auto) 16.7 TH/MM3 (1.8-7.7) 17.5 TH/MM3 (1.8-7.7) Monocytes # (Auto) 1.1 TH/MM3 (0-0.9) 1.2 TH/MM3 (0-0.9) Random Glucose 194 MG/DL (74-106) 231 MG/DL (74-106) Calcium Level 7.8 MG/DL (8.5-10.1) 7.5 MG/DL (8.5-10.1) Sodium Level 132 MEQ/L (136-145) 132 MEQ/L (136-145) Carbon Dioxide Level 20.5 MEQ/L (21.0-32.0) 17.9 MEQ/L (21.0-32.0) Total Protein 6.3 GM/DL (6.4-8.2) Albumin 2.2 GM/DL (3.4-5.0) Imaging Last Impressions Head CT 10/29/17 0728 Signed Impressions: Service Date/Time: Sunday, October 29, 2017 07:44 - CONCLUSION: No acute intracranial abnormality. Subgaleal hematoma along the left frontal region as well as preseptal orbital soft tissue swelling on the left. Jamel Leonard MD Chest X-Ray 10/29/17 0000 Signed Impressions: Service Date/Time: Sunday, October 29, 2017 09:07 - CONCLUSION: Right basilar atelectasis. Mild cardiomegaly. Poor inspiratory result. Jamel Leonard MD PE at Discharge GENERAL: Well-developed, well-nourished, in no acute distress. alert and orientated HEENT: Head is normocephalic without any lesions or masses noted. Facial features patient does have ecchymosis and mild edema noted over the left brow and lateral eye. Eyes: Extraocular muscles are intact. Conjunctivae were clear. NECK: Supple without any masses. Trachea midline no deviation. No JVD, CARDIAC: Irregular rhythm, irregular rate. S1/S2 are heard. No murmurs gallops or rubs. LUNGS: Clear to auscultation bilaterally. No wheeze, rhonchi or rales. No use of accessory muscles on inspiration or expiration. ABDOMEN: Soft, nontender. Nondistended. Bowel sounds heard in all 4 quadrants. No organomegaly or masses. Negative rebound, negative guarding EXTREMITIES: No edema, pulses are equal bilaterally. No cyanosis or clubbing NEUROLOGY: Mood and affect appear appropriate. Cranial nerves II through XII grossly intact. Moving all extremities, speech is clear Hospital Course 72-year-old female who originally presented to hospital because of lightheadedness, dizziness and fall at home which she struck the left side of the head. Patient had workup done in found to have hyponatremia. Sodium is 120. Patient was febrile and tachycardiac with urinary tract infection. Further testing was performed which did indicate patient had influenza infection. Patient was started on empirical antibiotics to include Rocephin and started on Tamiflu for influenza. Patient was doing well then started developing atrial fibrillation with RVR. Patient was not on her Cardizem CD 180 mg. Patient was given Cardizem IV 20 mg a and started on Cardizem drip. She was given her home medication Cardizem CD 180 mg and successfully weaned off of Cardizem IV. Upon seeing the patient today she is feeling much better. She is sitting in a chair joking. Her heart rate is controlled. She has not required any oxygen for supplementation. Clinically she is stable and very eager to go home. Will plan discharge home accordingly. Pt Condition on Discharge: Stable Discharge Disposition: Disch w/ Home Health Serv Discharge Time: > 30 minutes Discharge Instructions DIET: Follow Instructions for: Diabetic Diet Activities you can perform: Regular-No Restrictions Follow up Referrals: PCP Follow-up - 1 Week New Medications: Nitrofurantoin Monohydrate Macrocrystals (Macrobid) 100 Mg Cap 100 MG PO BID for Infection for 7 Days, #14 CAP 0 Refills Oseltamivir (Tamiflu) 75 Mg Cap 75 MG PO BID for Infection for 3 Days, #6 CAP Continued Medications: Aspirin (Aspirin) 81 Mg Chew 81 MG CHEW DAILY, TAB 0 Refills Atorvastatin (Atorvastatin) 10 Mg Tab 10 MG PO HS for Cholesterol Management, #30 TAB 0 Refills Coenzyme Q10 (Ubidecarenone) (Coq-10 Tr) 100 Mg Cap 1 MG PE PO DAILY Diltiazem CD 24 HR (Cardizem CD 24 HR) 180 Mg Caper 180 MG PO DAILY, #30 CAP 0 Refills Glimepiride (Amaryl) 2 Mg Tab 2 MG PO BIDAC for Blood Sugar Management, #60 TAB 0 Refills Metformin (Metformin) 1,000 Mg Tab 1000 MG PO BIDPC for Blood Sugar Management, #60 TAB 0 Refills Metoprolol Succinate ER 24 HR (Metoprolol Succinate ER 24 HR) 50 Mg Tab 50 MG PO DAILY, #30 TAB 0 Refills Vinicio Gimenez Nov 01, 2017 14:42
--- NOTE | 2017-11-01 23:05 | EKG ---
Date Performed: 10/31/2017 Time Performed: 11:47:56 PTAGE: 72 years EKG: ATRIAL FIBRILLATION WITH RAPID VENTRICULAR RESPONSE INTRAVENTRICULAR CONDUCTION DELAY ABNOR MAL ECG NO PREVIOUS TRACING DOCTOR: Zahraa Estevez Interpretating Date/Time 11/01/2017 23:03:27
== END 2017-11-01 14:30 | disposition home health service (06) | DRG 872 ==
LOC: PHED 06:20 → PHEDA 08:53 → PHEDH 12:58 → PH3A 16:06 → PHICU 10-31 12:07
PROVIDERS: ADMIT Hospitalist; ATTEND Hospitalist
DX: A41.9 Sepsis, unspecified organism (principal); E87.1 Hypo-osmolality and hyponatremia; E11.9 Type 2 diabetes mellitus without complications; Z79.84 Long term (current) use of oral hypoglycemic drugs; I48.91 Unspecified atrial fibrillation; N39.0 Urinary tract infection, site not specified; I10 Essential (primary) hypertension; R55 Syncope and collapse; E86.0 Dehydration; J11.1 Influenza due to unidentified influenza virus with other respiratory manifestations; S00.12XA Contusion of left eyelid and periocular area, initial encounter; Y92.002 Bathroom of unspecified non-institutional (private) residence as the place of occurrence of the external cause; W01.198A Fall on same level from slipping, tripping and stumbling with subsequent striking against other object, initial encounter; Z79.82 Long term (current) use of aspirin
CPT/HCPCS: 70450; 71046; 80048; 80053; 81001; 82948; 83605; 83735; 85025; 87040; 87077; 87086; 87186; 87804; 93005; 94664; 96365; J0696; J1815; J7030